=== PATIENT | female | born 1995 | race Caucasian/White ===

== ENCOUNTER 2017-01-27 15:59 | Outpatient (CLI) | payer BC ==
[~2017-01-27] VITALS: Ht 152.4 cm; Wt 76.3 kg
[~2017-01-27 15:59] MED LIST: ACET-2161 PO; HYDR-4078 PO; IBUP-1724 PO
[2017-01-27 16:11] VITALS: Ht 152.4 cm; Wt 76.3 kg
[2017-01-27] MEDS ORDERED: ONDANSETRON 4mg/2ml INJECTION IV PRN (16:30)
[2017-01-27] MEDS ORDERED: DimenhyDRINATE 50 MG in LR 1,000 ML IV SCH (16:30)
[2017-01-27 16:50] VITALS: BP 102/53; PULSE 71; RESP 16; TEMP 97; O2SAT 96
[2017-01-27 17:09] VITALS: PULSE 71; RESP 16
[2017-01-27] MEDS ORDERED: PRENATAL (17:09)
[2017-01-27] MEDS ORDERED: D5LR 1,000 ML IV SCH (17:30)
== END 2017-01-27 20:00 | disposition home or self-care (01) ==
LOC: INF.THER 15:59
PROVIDERS: ATTEND Obstetrics & Gynecology
DX: O21.1 Hyperemesis gravidarum with metabolic disturbance (principal)
CPT/HCPCS: 96361; 96365; 96375; J1240; J2405; J7120; J7121

== ENCOUNTER 2017-08-14 11:13 | Inpatient (IN) ==
--- OUTSIDE RECORDS SUMMARY | 2017-08-14 11:31 | External Medical Summary ---
:1995 Author Organization [employer] Care Team Providers Name Role Phone Eusebia Mendoza Provider Role Unavailable Allergies, Adverse Reactions, Alerts Substance Reaction Event Type Vitamin A affects eyesight Non Drug Allergy Problems Problem Type Condition Code Onset Dates Condition Status Problem Other unknown and unspecified cause 799.9 Active of morbidity or mortality Assessment Unspecified mood [affective] disorder F39 Active Problem Unspecified mood [affective] disorder F39 Active Medications Medication Code System Code Instructions Start End Date Status Dosage Date Fluoxetine HCl [facility] 51726-18 10 MG Orally May 19, 1 tablet in 88-10 Once a day 2015 the morning Wellbutrin [facility] 11413-47 75 MG Orally Jul 23, 1 tablet 77-55 once a day 2014 Procedures Procedure Coding System Code Date OFFICE VISIT, EST-MOD. COMPLEXITY (25 MIN) CPT-4 01258 May 19, 2016 Vital Signs Date/Time: May 19, 2016 Temperature 98.8 F BMIPercentile 97.48 % Height 58.5 in Weight 169.8 lbs Blood Pressure Diastolic 86 mm Hg Blood Pressure Systolic 122 mm Hg Cardiac Monitoring Heart Rate 72 /min BMI 34.88 Index Wt Percentile 92.54 % Respiratory Rate 20 /min Results No Known Results Summary Purpose e[employer] Submission
[2017-08-14] MEDS ORDERED: CALCIUM CARBONATE Chewable 500mg TABLET PO PRN ×2 (12:10→23:32)
[2017-08-14] MEDS ORDERED: D5LR 1,000 ML IV PRN (12:10)
[2017-08-14] MEDS ORDERED: MAG-AL + SIM ORAL LIQUID 30ml PO PRN (12:10)
[2017-08-14] MEDS ORDERED: OXYTOCIN DRIP 30 UNIT/500 ML ML IV PRN (12:10)
[2017-08-14] MEDS ORDERED: METHYLERGONOVINE 0.2 MG/ML INJECTION IM PRN (12:10)
[2017-08-14] MEDS ORDERED: ACETAMINOPHEN 500 MG TABLET PO PRN ×2 (12:10→23:32)
[2017-08-14] MEDS ORDERED: LIDOCAINE 1% (10mg/ml) 2mL INJ PF SDV ID PRN (12:10)
[2017-08-14] MEDS ORDERED: CARBOPROST 250 MCG/ML INJECTION IM PRN (12:10)
--- NOTE | 2017-08-14 12:29 | Anesthesia Preoperative Report ---
Anesthesia Preoperative Record - Date and Time Date: 08/14/17 Preoperative Diagnosis: OB Triage Allergies/Adverse Reactions: Allergies Allergy/AdvReac Type Severity Reaction Status Date / Time vitamin A Allergy Mild INCREASES Uncoded 05/26/17 09:15 OPTIC NERVE SWELLING - Medications Inpatient Medications: Current Medications Acetaminophen (Tylenol) 500 - 1,000 mg PO Q4H PRN PRN Reason: Pain Al Hydroxide/Mg Hydroxide (Maalox Plus) 30 ml PO Q3H PRN PRN Reason: Indigestion Calcium Carbonate (Tums) 500 - 1,000 mg PO Q2H PRN PRN Reason: Indigestion Carboprost Tromethamine (Hemabate) 250 mcg IM O PRN PRN Reason: .Downtime Dextrose/Lactated Ringer's (Dextrose 5%-Lactated Ringers) 1,000 mls @ 125 mls/ hr IV .Q8H PRN PRN Reason: Labor Oxytocin (Pitocin Drip) 30 unit in 500 mls @ 2 mls/hr IV .Q24H PRN; Protocol PRN Reason: Induction/Augmentation Lactated Ringer's (Lactated Ringers) 1,000 mls @ 999 mls/hr IV .Q1H1M PRN Lidocaine HCl (Xylocaine-Mpf 1% Vial) 0.2 mg ID O PRN PRN Reason: IV Start Methylergonovine Maleate (Methergine) 0.2 mg IM O PRN Misoprostol (Cytotec) 800 mcg [place] ONCE PRN - Surgical History Neurological Surgeries: Reports: Other (2016 had a LP shunt placed to help with headaches) - Social History Smoking Status: Former smoker - Discussion Discussion: Discussed risks/options/alternatives of anesthesia and questions answered. Patient consents. Nursing pain assessment noted. Attestation Statement: Prior to the delivery of any anesthetic medication, I examined the patient, developed the plan, obtained the patient's consent and discussed the risk and benefits of the procedure with the patient/guardian.
--- NOTE | 2017-08-14 12:39 | Anesthesia Preoperative Report ---
Anesthesia Epidural/Spinal Rec - Date and Time Date: 08/14/17 Procedure: Labor Epidural Plan: Epidural - Vital Signs /Para: P:0 - Medictaions & Allergies Inpatient Medications: Current Medications Acetaminophen (Tylenol) 500 - 1,000 mg PO Q4H PRN PRN Reason: Pain Al Hydroxide/Mg Hydroxide (Maalox Plus) 30 ml PO Q3H PRN PRN Reason: Indigestion Calcium Carbonate (Tums) 500 - 1,000 mg PO Q2H PRN PRN Reason: Indigestion Carboprost Tromethamine (Hemabate) 250 mcg IM O PRN PRN Reason: .Downtime Dextrose/Lactated Ringer's (Dextrose 5%-Lactated Ringers) 1,000 mls @ 125 mls/ hr IV .Q8H PRN PRN Reason: Labor Oxytocin (Pitocin Drip) 30 unit in 500 mls @ 2 mls/hr IV .Q24H PRN; Protocol PRN Reason: Induction/Augmentation Lactated Ringer's (Lactated Ringers) 1,000 mls @ 999 mls/hr IV .Q1H1M PRN Lidocaine HCl (Xylocaine-Mpf 1% Vial) 0.2 mg ID O PRN PRN Reason: IV Start Methylergonovine Maleate (Methergine) 0.2 mg IM O PRN Misoprostol (Cytotec) 800 mcg DC ONCE PRN Allergies/Adverse Reactions: Allergies Allergy/AdvReac Type Severity Reaction Status Date / Time vitamin A Allergy Mild INCREASES Uncoded 05/26/17 09:15 OPTIC NERVE SWELLING - Medical History Respiratory: DENIES: Asthma, Sleep Apnea Cardiovascular: DENIES: Hypertension Gastrointestional: DENIES: Gastroesophageal Reflux Disease Neuro/Musculoskeletal: Reports: Other (pseudotumor cerebri (headaches, optic n. pressure)- LP shunt in now) Renal/Endocrine: Reports: Other (morbid obesity) DENIES: Diabetes Mellitus Type 2 Other History: DENIES: Anesthesia Reactions - Surgical History Anesthesia Reactions: None Hx Family Anesthesia Reaction: No History of Motion Sickness: No - Social History Substance Use Type: does not use Hx Chewing Tobacco Use: No - Physical Exam Respiratory Exam: lungs clear, bilateral breath sounds equal Cardiovascular Exam: regular rate and rhythm - Airway Assessment Mallampati Score: III TMD: 3 Fingerbreadths Neck Extension: good Overall Assessment: may be difficult mask vent, may be difficult intubation - ASA ASA Score: 2 - Discussion Discussion: Discussed risks/options/alternatives of anesthesia and questions answered. Patient consents. Nursing pain assessment noted. Anesthesia Discussion: other Attestation Statement: Prior to the delivery of any anesthetic medication, I examined the patient, developed the plan, obtained the patient's consent and discussed the risk and benefits of the procedure with the patient/guardian.
[2017-08-14 13:30] VITALS: BMI 45.2
[2017-08-14] MEDS: LR 1,000 ML IV PRN ×4 (13:33→19:51)
[2017-08-14] MEDS ORDERED: CEFAZOLIN PREMIX (MC ONLY) 2 GM/50 ML BAG IV ONE (20:55)
[2017-08-14] MEDS ORDERED: CEFAZOLIN 1 G INJECTION IVP ONE (20:55)
[2017-08-14] MEDS ORDERED: FAMOTIDINE PB 20 MG/50 ML BAG IV ONE (20:55)
[2017-08-14] MEDS ORDERED: CITRIC ACID/SODIUM CITRATE 30ml PO ONE (20:55)
[2017-08-14] MEDS ORDERED: ROPIVACAINE 0.2% 2MG/ML INJ 40 MG, SUFentanil 50 MCG in NS 100 ML ID ONE (21:00)
[2017-08-14] MEDS ORDERED: FentaNYL 100 MCG/2 ML INJECTION ONE (21:15)
[2017-08-14] MEDS ORDERED: ONDANSETRON 4 MG/2 ML INJECTION ONE (21:17)
[2017-08-14] MEDS ORDERED: LIDOCAINE 2%/EPI 1:200,000 20ml SDV PF ONE (21:17)
[2017-08-14] MEDS ORDERED: .WATER FOR INJECTION,STERILE 10 ML VIAL ONE (21:22)
[2017-08-14] MEDS ORDERED: TRANEXAMIC ACID 1,000 MG in NS 100 ML IV ONE (21:43)
[2017-08-14] MEDS ORDERED: DiphenhydrAMINE 50 MG/ML INJECTION ONE (22:38)
[2017-08-14] MEDS ORDERED: EPHEDRINE 50mg/ml INJECTION ONE (22:38)
[2017-08-14] MEDS ORDERED: AZITHROMYCIN IV 500 MG in NS 250ml 250 ML IV ONE (23:09)
[2017-08-14] MEDS ORDERED: HYDROCORTISONE 2.5% CREAM 30gm RECTALLY PRN (23:32)
[2017-08-14] MEDS ORDERED: DiphenhydrAMINE 25 MG CAPSULE PO PRN (23:32)
[2017-08-14] MEDS ORDERED: SALINE FLUSH 10ml SYRINGE IV PRN (23:32)
[2017-08-14] MEDS ORDERED: ONDANSETRON 4 MG/2 ML INJECTION IVP PRN (23:32)
[2017-08-14] MEDS ORDERED: SIMETHICONE 80 MG CHEWABLE TABLET PO PRN (23:32)
[2017-08-14] MEDS ORDERED: OXYTOCIN DRIP 30 UNIT/500 ML ML IV SCH (23:32)
[2017-08-14] MEDS ORDERED: METOCLOPRAMIDE 10mg/2ml INJECTION IVP PRN (23:32)
[2017-08-14] MEDS ORDERED: HYDROMORPHONE PCA 30mg/30ml VIAL IV PRN (23:32)
[2017-08-15] MEDS: D5LR 1,000 ML IV SCH ×2 (01:00→16:35)
[2017-08-15] MEDS ORDERED: ONDANSETRON 4 MG/2 ML INJECTION IVP PRN ×2 (02:23→02:24)
[2017-08-15] MEDS ORDERED: DiphenhydrAMINE 50 MG/ML INJECTION IVP PRN ×2 (02:23→02:24)
[2017-08-15] MEDS ORDERED: NALOXONE 2 MG/2 ML INJECTION PFS IVP PRN (02:23)
[2017-08-15] MEDS ORDERED: NALOXONE 0.4 MG/ML INJECTION IVP PRN (02:24)
[2017-08-15] MEDS ORDERED: CEFAZOLIN 2 G in NS 100 ML IV SCH (03:00)
[2017-08-15] MEDS ORDERED: CEFAZOLIN 2 G in NS 50 ML IV SCH ×2 (04:18→04:31)
[2017-08-15] MEDS: CEFAZOLIN 2 G in NS 50 ML IV SCH ×4 (04:30→17:30)
[2017-08-15] MEDS: HYDROCODONE/APAP 5mg/325mg TABLET PO PRN ×4 (09:41→23:01)
[2017-08-15] MEDS: SIMETHICONE 80 MG CHEWABLE TABLET PO SCH ×4 (09:42→23:01)
[2017-08-15] MEDS: IBUPROFEN 800 MG TABLET PO PRN ×3 (09:42→23:01)
[2017-08-15] MEDS: DOCUSATE CALCIUM 240 MG CAPSULE PO SCH (09:42)
--- NOTE | 2017-08-15 10:11 | Anesthesia Postoperative Note ---
- Date and Time Date: 08/15/17 Time: 10:11 - Status Patient Participated in Evaluation: Patient Participated in Person Vital Signs: Temperature 98.5 F 08/15/17 07:30 Pulse Rate 108 H 08/15/17 07:30 Respiratory Rate 16 08/15/17 07:30 Blood Pressure 140/64 H 08/15/17 07:30 Pulse Oximetry 97 08/15/17 07:30 Respiratory Function: Airway Patent Cardiovascular Function: Regular Pulse EKG: Sinus Rhythm Mental Status: Alert and Oriented Hydration: Taking PO Fluids Complications During Recover: None Apparent - Follow-Up Instructions Instructions: Per Surgeon
--- NOTE | 2017-08-15 10:13 | OB/GYN Progress Note ---
OB-PP Progress Note - General PPD1 Maternal Group B Strep: Negative Maternal blood type: A+ Maternal Rubella Status: Immune - Subjective Date: 08/15/17 Lochia: Minimal Pain: moderate Voiding: [place] still in place Nausea or Vomiting Present: No - Objective Vital Signs: Last Vital Signs Temp 98.5 F 08/15/17 07:30 Pulse 108 H 08/15/17 07:30 Resp 16 08/15/17 07:30 BP 140/64 H 08/15/17 07:30 Pulse Ox 97 08/15/17 07:30 Urine Output: good General: alert and oriented Abdomen: fundus firm, non-tender Incision: dry, dressed Extremities: non-tender Side: bilateral Site: leg, ankle Edema Degree: 1+ Laboratory: Laboratory Results - last 24 hr 08/14/17 08/14/17 12:53 12:53 WBC 12.0 H RBC 4.22 Hgb 12.6 Hct 37.7 MCV 89.3 MCH 29.9 MCHC 33.4 RDW Std Deviation 44.1 Plt Count 317 MPV 10.5 Blood Type A Positive Antibody Screen Negative - Assessment Assessment: SP, Primary C/S - Plan Plan: routine care
--- NOTE | 2017-08-15 10:38 | Operative Note ---
DATE OF SURGERY 08/14/2017 PREOPERATIVE DIAGNOSIS Failure to progress. POSTOPERATIVE DIAGNOSIS Failure to progress. PROCEDURES Primary low transverse section. SURGEON Ana Tyler MD VAMP [employer]AP IRONER Real Zelaya MD ANESTHESIA Continuous epidural. ANESTHESIOLOGIST Lon Foster CRNA EBL 600 mL DESCRIPTION OF PROCEDURE Ms. Flynn was brought to the OR and placed on the OR table in a comfortable supine position with left lateral displacement. Her regional analgesia was brought up to adequate surgical levels. A Bedoya catheter had previously been placed to dependent drain. The abdomen was prepped and draped in the usual sterile fashion. A Pfannenstiel skin incision was made with a sharp knife. This was carried down to fascia. Fascia was incised transversely. This was then bluntly and sharply dissected free of the rectus muscles. Rectus muscles were bluntly divided. The peritoneum was tented up and sharply entered. This was extended vertically. The bladder blade was inserted to protect the bladder. The bladder was noted to be well below our area of operation. We were able to see the patient's intraperitoneal shunt and kept it pushed out of the way during the procedure. I made a low transverse uterine incision. The baby was delivered in vertex LOT presentation without difficulty. Baby was bulb suctioned on the abdomen. Cord was doubly clamped and cut and the baby was given to Dr. Valerio and his team for care. This is a liveborn female with Apgars of 8/9/9. She weighed 5 pounds, 12.5 ounces. The placenta was then manually removed intact. It had a normal configuration and normal-appearing three-vessel cord. The uterus was swept clear of membranes and then exteriorized. The myometrial incision was reapproximated with a running locking 0-Monocryl. I then reinforced a section of the middle with another running locking 0-Monocryl. Hemostasis was carefully observed and found to be good. We inspected uterus, tubes and ovaries. They were normal and they were returned to the abdominal cavity after removing gross blood. We then reinspected our incision. It remained hemostatic as did the remainder of the surgery. The peritoneum was then reapproximated with a running nonlocking 2-0 Vicryl. Fascia was reapproximated with a running nonlocking 0-Vicryl. Guido' s was reapproximated with simple ligatures of 2-0 Vicryl. Skin edges were reapproximated with subcuticular style 3-0 undyed Vicryl. The wound was dressed with Steri-Strips and sterile dressings. Counts were correct postoperatively x 2. The urine remained clear and free-flowing throughout the procedure. Ms. Flynn was then transferred to recovery in stable condition. [facility]
[2017-08-16] MEDS: CEFAZOLIN 2 G in NS 50 ML IV SCH (03:25)
[2017-08-16] MEDS: HYDROCODONE/APAP 5mg/325mg TABLET PO PRN ×4 (06:50→23:44)
[2017-08-16] MEDS: SIMETHICONE 80 MG CHEWABLE TABLET PO SCH ×2 (08:45→18:21)
[2017-08-16] MEDS: DOCUSATE CALCIUM 240 MG CAPSULE PO SCH (08:45)
--- NOTE | 2017-08-16 12:27 | Discharge Instructions ---
Discharge Plan - Med Rec/Dispo Prescriptions: New Hydrocodone/APAP 5/325 [[place] 5/325] 1 - 2 tab PO Q4H PRN #30 tab PRN Reason: Pain Ibuprofen [Motrin] 800 mg PO Q8H PRN #40 tab PRN Reason: Pain Docusate Calcium [Surfak] 240 mg PO DAILY #30 cap - Disposition 01 Discharged Home, Self-Care
--- NOTE | 2017-08-16 12:56 | OB/GYN Progress Note ---
OB-PP Progress Note - General PPD2 Maternal Group B Strep: Negative Maternal Rubella Status: Immune - Subjective Date: 08/16/17 Lochia: Minimal Pain: contolled Voiding: voiding Nausea or Vomiting Present: No - Objective Vital Signs: Last Vital Signs Temp 97.9 F 08/16/17 08:50 Pulse 109 H 08/16/17 11:00 Resp 16 08/16/17 08:50 BP 135/83 08/16/17 11:00 Pulse Ox 96 08/16/17 11:00 Urine Output: good General: alert and oriented Abdomen: fundus firm, non-tender Incision: normal, dry, intact Extremities: non-tender - Assessment Assessment: SP, Primary C/S - Plan Plan: routine care Expected date of discharge: 08/17/17
[2017-08-16] MEDS: IBUPROFEN 800 MG TABLET PO PRN (17:31)
[2017-08-17] MEDS: SIMETHICONE 80 MG CHEWABLE TABLET PO SCH ×3 (02:00→14:09)
[2017-08-17] MEDS: IBUPROFEN 800 MG TABLET PO PRN ×2 (04:25→13:28)
[2017-08-17 06:20] VITALS: RESP 18; O2SAT 97
[2017-08-17] MEDS: DOCUSATE CALCIUM 240 MG CAPSULE PO SCH (11:06)
[2017-08-17 13:22] VITALS: BP 141/94; PULSE 106; TEMP 98.4
== END 2017-08-17 13:55 | disposition home or self-care (01) | DRG 765 ==
LOC: MC 11:13 → OBOBS 11:13 → MC 11:45
PROVIDERS: ADMIT Obstetrics & Gynecology; ATTEND Obstetrics & Gynecology